=== PATIENT | female | born 1965 | race Caucasian/White ===

== ENCOUNTER 2021-09-12 10:00 | Outpatient (CLI) | payer BC, SELFPAY ==
[2021-09-12 10:02] VITALS: BP 96/71; PULSE 69; RESP 16; TEMP 36.6; O2SAT 97; BMI 21.8
[2021-09-12 10:09] VITALS: BP 90/60; PULSE 77; RESP 16; TEMP 36.7; O2SAT 98
[2021-09-12 10:53] VITALS: BP 102/70; PULSE 66; RESP 16; TEMP 36.6; O2SAT 97
== END 2021-09-12 11:52 | disposition home or self-care (01) ==
LOC: OPS 10:04
PROVIDERS: PCP Electrodiagnostic Medicine; Visit Provider Electrodiagnostic Medicine
DX: U07.1 COVID-19 (principal)
CPT/HCPCS: 96365

== ENCOUNTER 2024-06-24 04:21 | Emergency (ER) | payer BC, SELFPAY ==
--- NOTE | 2024-06-24 04:29 | ECG_ITS ---
[facility] Test Date: 2024-06-24 Pat Name: Shaylee James Department: Room: Gender: Female State Appellate Clerk: : 1965 Requested By: Erik Burns Order Number: [id number] Spencer MD: Julienne Arshad M.D. Measurements Intervals [place] Rate: 65 P: 57 MA: 143 QRS: 71 QRSD: 101 T: 70 QT: 399 QTc: 418 Interpretive Statements SINUS RHYTHM POSSIBLE RIGHT VENTRICULAR CONDUCTION DELAY [RSR (QR) IN V1/V2] No previous ECG available for comparison Electronically Signed On 06-24-2024 13:39:22 CDT by Julienne Arshad M.D. [email or web address]
[2024-06-24 04:32] VITALS: BP 151/87; PULSE 67; RESP 20; TEMP 36.6; O2SAT 97; BMI 21.8
[2024-06-24 04:47] VITALS: BP 151/87; PULSE 65; RESP 16; O2SAT 96
[2024-06-24 04:52] LABS: Basophils % 0.9 %; Eosinophils # 0.2 10^3/uL (0.0-0.8); Eosinophils % 4.4 %; Hematocrit 41.7 % (36-47); Lymphocytes # 2.2 10^3/uL (0.8-4.8); Lymphocytes % 48.5 %; Mean Corpuscular HGB Conc 31.4 g/dL (30-55); Mean Corpuscular Hemoglobin 28.6 pg (27-33); Monocytes # 0.3 10^3/uL (0.2-0.9); Monocytes % 7.2 %; Neutrophils # 1.77 10^3/uL (1.8-7.7); Neutrophils % 38.8 %; Nucleated Red Blood Cells % 0 %; Platelet Count 208 10^3/cmm (157-399); Red Blood Count 4.58 10^6/uL (3.85-5.65); Red Cell Distribution Width 12.9 % (12.1-15.1); White Blood Count 4.56 10^3/uL (3.29-11.43)
--- NOTE | 2024-06-24 05:13 | XRR_ITS ---
PROCEDURE INFORMATION: Exam: XR Chest Exam date and time: 06/24/2024 5:15 AM Age: 58 years old Clinical indication: Chest pressure; Prior surgery; Surgery date: 6+ months; Surgery type: Mastectomy; Patient HX: C/O chest pain. History of breast cancer. ; Additional info: Cp TECHNIQUE: Imaging protocol: Radiologic exam of the chest. Views: 1 view. COMPARISON: No relevant prior studies available. FINDINGS: Lungs: Unremarkable. No consolidation. Pleural spaces: Unremarkable. No pleural effusion. No pneumothorax. Heart/Mediastinum: Unremarkable. No cardiomegaly. Bones/joints: Unremarkable. XR/XR chest 1V portable [id number] IMPRESSION: No acute findings.
[2024-06-24 05:15] LABS: Troponin(5th) Baseline < 6 ng/L (0-10)
[2024-06-24 05:23] VITALS: BP 115/68; PULSE 65; O2SAT 97
[2024-06-24 05:27] LABS: Blood Urea Nitrogen 15 mg/dL (8-23); Calcium 9.1 mg/dL (8.5-10.5); Carbon Dioxide 26 mmol/L (22-29); Chloride 105 mmol/L (98-107); Creatinine Clr Calc Pharmacy 89.8204; Glomerular Filtration Rate 85.4 mL/min (90-130); Glucose 99 mg/dL (65-115); Osmolality Calculated 293 mOsm/kg (285-295); Sodium 141 mmol/L (136-145)
--- NOTE | 2024-06-24 05:30 | ED_ITS ---
HPI - Chest Pain 2 General: Chief Complaint: Chest Pain Stated Complaint: Chest Tightness Time Seen by Provider: 06/24/24 04:37 History of Present Illness: 58-year-old female patient with no prior history of coronary disease. She presents with left-sided chest discomfort, worse with deep breathing for the last several hours. She was at rest when it started. She says she did not feel terribly well yesterday. Some shortness of breath. No cough. No nausea or vomiting or diaphoresis. She states that her father at 57 of a heart attack. Related Data Previous Rx's Medication Instructions Recorded ketorolac 10 mg tablet 10 mg PO TID PRN pain #10 tabs 06/24/24 Physical Exam 2 Const: COMMON NORMALS: no acute distress GENERAL APPEARANCE: cooperative; not ill appearing and not frail appearing HENMT: COMMON NORMALS: normocephalic, atraumatic and Normal external nose present HEAD & SCALP: normocephalic and atraumatic FACE & SINUS: normal facial exam and face symmetric NOSE: Normal external nose present Eye: COMMON NORMALS: Equal, round and reactive pupils present and EOMs intact bilaterally PUPIL: Yes Equal, round and reactive pupils present Neck/C-Spine: GENERAL: Yes trachea midline Chest: CHEST: Yes Symmetrical chest wall rise OTHER: Some chest wall tenderness on palpation on the left. Resp: COMMON NORMALS: normal respiratory effort, No retractions, No use of accessory muscles and clear to auscultation bilaterally AUSCULTATION: clear to auscultation bilaterally Cardio: COMMON NORMALS: regular rate and regular rhythm RATE: regular rate RHYTHM: regular rhythm GI: COMMON NORMALS: Normal to inspection, nondistended, normoactive bowel sounds present Extremity: COMMON NORMALS: no pedal edema Neuro: RAVINDER COMA SCALE: document GCS findings [place] coma scale eye opening: Spontaneous [place] coma scale verbal response: Orientated [place] coma scale motor response: Obey commands [place] coma scale total score: 15 S ENSORY EXAM: Yes extremities (intact) Psych: COMMON NORMALS: speech normal SPEECH: Yes normal speech Skin: COMMON NORMALS: no rashes or lesions noted GENERAL SKIN EXAM: no rashes or lesions noted Course 2 Vital Signs: Vital signs: Vital Signs Temperature 98 F 06/24/24 04:32 Pulse Rate 62 06/24/24 06:24 Respiratory Rate 16 06/24/24 06:24 Blood Pressure 110/73 11/02/24 06:24 Pulse Oximetry 97 06/24/24 06:24 Oxygen Delivery Me thod Room Air 06/24/24 06:08 MDM - Chest Pain Medical Decision Making 58-year-old female with some degree of reproducible left-sided chest discomfort. Her CBC is normal. BMP is normal. Her troponin is nondetectable. She is nontachycardic, nonhypoxic. Her BNP is 100. She is nonhypoxic, nontachycardic. She will be allowed home. She understands to return if pain worsens, changes, or she gets other new symptoms. Lab Data 06/24/24 04:43 06/24/24 04:43 Radiology Impressions Chest X-Ray 06/24/24 05:13 IMPRESSION: No acute findings. Laboratory Results WBC 4.56 10^3/uL (3.29-11.43) 06/24/24 04:43 RBC 4.58 10^6/uL (3.85-5.65) 06/24/24 04:43 Hgb 13.10 g/dL (11.27-16.99) 06/24/24 04:43 Hct 41.7 % (36-47) 06/24/24 04:43 MCV 91.0 fl (85-98) 06/24/24 04:43 MCH 28.6 pg (27-33) 06/24/24 04:43 MCHC 31.4 g/dL (30-55) 06/24/24 04:43 RDW 12.9 % (12.1-15.1) 06/24/24 04:43 Plt Count 208 10^3/cmm (157-399) 06/24/24 04:43 MPV 9.0 fL (7.4-10.4) 06/24/24 04:43 Neut % (Auto) 38.8 % 06/24/24 04:43 Lymph % (Auto) 48.5 % 06/24/24 04:43 [place] % (Auto) 7.2 % 06/24/24 04:43 Eos % (Auto) 4.4 % 06/24/24 04:43 Baso % (Auto) 0.9 % 06/24/24 04:43 Neut # (Auto) 1.77 10^3/uL (1.8-7.7) L 06/24/24 04:43 Lymph # (Auto) 2.2 10^3/uL (0.8-4.8) 06/24/24 04:43 [place] # (Auto) 0.3 10^3/uL (0.2-0.9) 06/24/24 04:43 Eos # (Auto) 0.2 10^3/uL (0.0-0.8) 06/24/24 04:43 Baso # (Auto) 0.0 10^3/uL (0.0-0.1) 06/24/24 04:43 Nucleated RBC % (auto) 0 % 06/24/24 04:43 Nucleated RBCs # 0.0 /100WBC 06/24/24 04:43 Sodium 141 mmol/L (136-145) 06/24/24 04:43 Potassium 4.0 mmol/L (3.5-5.1) 06/24/24 04:43 Chloride 105 mmol/L (98-107) 06/24/24 04:43 Carbon Dioxide 26 mmol/L (22-29) 06/24/24 04:43 Anion Gap 14.0 (5-19) 06/24/24 04:43 BUN 15 mg/dL (8-23) 06/24/24 04:43 Creatinine 0.7 mg/dL (0.5-0.9) 06/24/24 04:43 GFR Calculation 85.4 mL/min (90-130) L 06/24/24 04:43 Glucose 99 mg/dL (65-115) 06/24/24 04:43 Calculated Osmolality 293 mOsm/kg (285-295) 06/24/24 04:43 Calcium 9.1 mg/dL (8.5-10.5) 06/24/24 04:43 Troponin T Baseline < 6 ng/L (0-10) 06/24/24 04:43 NT-Pro-B Natriuret Pep 100 pg/mL (0-125) 06/24/24 04:43 XR interpretation done by ED provider, pending radiology final review Discharge Plan Discharge Patient Disposition: Home Clinical Impression: Atypical chest pain Condition: Stable Prescriptions: New ketorolac 10 mg tablet 10 mg PO TID PRN (Reason: pain) Qty: 10 0RF Discharge Orders: Discharge ED (Routine); Ordered 06/24/24 Ordered By: Erik Tavares Referrals: Liang Barragan DO [Primary Care Provider] - Patient Instructions: Chest Wall Pain (ED), Opioid Safety, Pain Management Activity Restrictions/Additional Instructions: Take medication prescribed scheduled for the next 48 hours. You may take as you needed after that. Return for worsening pain despite treatment, shortness of breath, fever, any other concerning symptoms. Call your doctor on Wednesday for an appointment this coming week. Coding Level of Care Code ED Production Assembly Operator for [place]
[2024-06-24 05:55] LABS: NT Pro B Type Natriuretic Pept 100 pg/mL (0-125)
[2024-06-24] MEDS: ketorolac 30 mg/mL INJ IVP (06:07)
[2024-06-24 06:08] VITALS: BP 110/73; PULSE 61; RESP 16; O2SAT 95
[2024-06-24 06:24] VITALS: BP 110/73; PULSE 62; RESP 16; O2SAT 97
== END 2024-06-24 06:25 | disposition home or self-care (01) ==
PROVIDERS: Emergency Provider Emergency Medicine; PCP Electrodiagnostic Medicine
DX: R07.89 Other chest pain (principal)
CPT/HCPCS: 71045; 80048; 83880; 84484; 85025; 93005; 96374; 99285; J1885